=== PATIENT | male | born 1965 | race Caucasian/White ===

== ENCOUNTER 2017-10-19 11:47 | Inpatient (IN) | payer OTHER ==
[~2017-10-19] VITALS: Ht 167.6 cm; Wt 78.5 kg
[~2017-10-19 11:47] MED LIST: ASPIRIN325 MG PO; CRESTOR20 MG PO; EFFIENT10 MG PO; FISH OIL300 MG PO; GARLIC1 EACH PO; LOPRESSOR25 MG PO; OXYCODONE APAP; OXYCODONE-APAP1 EACH PO; PERCOCET 10/1 TABLET PO; RED YEAST RICE600 M1 PO; VITAMIN E100 UNIT PO
[2017-10-19 14:17] LABS: HEMATOCRIT 46.9 % (38.0-50.0); HEMOGLOBIN 15.9 G/DL (12.5-16.6); MCH 31.8 PG (29.0-34.0); MCHC 33.9 G/DL (30.0-36.0); MCV 93.8 FL (86-99); RBC DIS.WIDTH-CV 13.4 % (11.8-14.6); RBC DIS.WIDTH-SD 46.3 % (39-53); WHITE BLOOD COUNT 10.6 K/uL (4.1-10.2)
[2017-10-19 14:27] LABS: CHLORIDE 104 mEq/L (99-109); POTASSIUM 4.5 mEq/L (3.7-5.4); SODIUM 141 mEq/L (136-147)
[2017-10-19 14:28] LABS: GLUCOSE 92 mg/dL (70-99)
[2017-10-19 14:41] LABS: TROP-I INTERPRETATION NEGATIVE; TROPONIN-I < 0.01 ng/mL (0.0-0.30)
[2017-10-19 14:45] LABS: ALBUMIN 4.2 g/dL (3.2-4.8)
[2017-10-19 14:48] LABS: TOTAL PROTEIN 7.6 g/dL (6.4-8.3)
[2017-10-19 14:50] LABS: TOTAL BILIRUBIN 2.2 mg/dL (0.0-1.0)
[2017-10-19 14:51] LABS: ALKALINE PHOSPHATASE 67 IU/L (3-129)
[2017-10-19 14:52] LABS: CREATININE 0.9 mg/dL (0.6-1.3); GFR ESTIMATE (CALCULATED) > 59 mL/min/ (58.99-99999); UREA NITROGEN (BUN) 15 mg/dL (9-23)
[2017-10-19 14:53] LABS: AST (GOT) 14 IU/L (2-34); DIRECT BILIRUBIN 0.5 mg/dL (0.0-0.3)
[2017-10-19 14:54] LABS: ALT (GPT) 13 IU/L (3-49)
[2017-10-19 14:55] LABS: LIPASE 215 U/L (1.0-51.0)
[2017-10-19 15:17] LABS: PLAT.SUFFICIENCY ADEQUATE; PLATELET COUNT 250 K/uL (156-360)
[2017-10-19 18:04] VITALS: BP 143/81
[2017-10-19 19:40] VITALS: BP 139/97
[2017-10-19 20:26] LABS: TROP-I INTERPRETATION NEGATIVE; TROPONIN-I < 0.01 ng/mL (0.0-0.30)
[2017-10-19 23:31] VITALS: BP 106/56
[2017-10-20 02:58] LABS: TROP-I INTERPRETATION NEGATIVE; TROPONIN-I < 0.01 ng/mL (0.0-0.30)
[2017-10-20 04:01] VITALS: BP 108/60
[2017-10-20 07:08] LABS: CHLORIDE 108 MEQ/L (99-109); POTASSIUM 3.9 MEQ/L (3.7-5.4); SODIUM 141 MEQ/L (136-147)
[2017-10-20 07:14] LABS: CREATININE 0.8 MG/DL (0.6-1.3); GFR ESTIMATE (CALCULATED) > 59 mL/min/ (58.99-99999); GLUCOSE 105 mg/dL (70-99); UREA NITROGEN (BUN) 11 mg/dL (9-23)
[2017-10-20 07:37] VITALS: BP 124/66
[2017-10-20 11:24] VITALS: BP 122/80
[2017-10-20 15:01] LABS: HDL CHOLESTEROL 44 MG/DL (Desirable>=40); LDL CHOLESTEROL 200 mg/dL (Desirable<100); NON-HDL CHOLESTEROL 225 mg/dL (Desirable<160); TOTAL CHOLESTEROL 269 mg/dL (Desirable<200); TRIGLYCERIDES 123 MG/DL (Normal: <150)
[2017-10-20 16:13] VITALS: BP 126/76
[2017-10-20 19:49] VITALS: BP 139/87
[2017-10-20 23:35] VITALS: BP 136/78
[2017-10-21 03:35] VITALS: BP 134/76
[2017-10-21 06:43] LABS: HEMATOCRIT 44.1 % (38.0-50.0); HEMOGLOBIN 14.7 G/DL (12.5-16.6); MCH 31.3 PG (29.0-34.0); MCHC 33.3 G/DL (30.0-36.0); PLATELET COUNT 241 K/uL (156-360); RBC DIS.WIDTH-SD 44.7 % (39-53); RED BLOOD COUNT 4.69 M/uL (4.00-5.50); WHITE BLOOD COUNT 9.1 K/uL (4.1-10.2)
[2017-10-21 07:11] LABS: ALBUMIN 3.9 G/DL (3.2-4.8); ALKALINE PHOSPHATASE 54 IU/L (3-129); ALT (GPT) 8 IU/L (3-49); AST (GOT) 11 IU/L (2-34); CHLORIDE 107 MEQ/L (99-109); CREATININE 0.9 MG/DL (0.6-1.3); GFR ESTIMATE (CALCULATED) > 59 mL/min/ (58.99-99999); GLUCOSE 109 mg/dL (70-99); POTASSIUM 4.1 MEQ/L (3.7-5.4); SODIUM 141 MEQ/L (136-147); TOTAL BILIRUBIN 2.1 MG/DL (0.0-1.0); TOTAL PROTEIN 6.1 G/DL (6.4-8.3); UREA NITROGEN (BUN) 9 mg/dL (9-23)
[2017-10-21 07:53] VITALS: BP 126/86
== END 2017-10-21 11:38 | disposition home or self-care (01) | DRG 440 ==
LOC: EME 11:47 → 5SOUTH 16:27 → EDOF 16:27 → ENRESERV 16:29 → 5SOUTH 17:44 → ENPENDDIS 10-21 → 5SOUTH 10-21 11:38
PROVIDERS: Internal Medicine
DX: K85.90 Acute pancreatitis without necrosis or infection, unspecified (principal); K80.20 Calculus of gallbladder without cholecystitis without obstruction; I10 Essential (primary) hypertension; E78.00 Pure hypercholesterolemia, unspecified; I25.10 Atherosclerotic heart disease of native coronary artery without angina pectoris; M54.2 Cervicalgia; I25.2 Old myocardial infarction; Z95.5 Presence of coronary angioplasty implant and graft; Z79.82 Long term (current) use of aspirin; Z87.891 Personal history of nicotine dependence; Z90.81 Acquired absence of spleen
CPT/HCPCS: 71020; 71275; 76705; 80048; 80053; 80061; 80076; 83690; 84484; 85027; 93005; 94760; 99202; 99281; 99283; J1170; J1650; J7030; S0028

== ENCOUNTER → 2018-02-14 | Outpatient (CLI) | payer OTHER ==
[~2018-02-14] MED LIST changes: +OMEPRAZOLE40 M1 PO
== END | disposition home or self-care (01) ==
LOC: CDC 10:01
DX: Z01.810 Encounter for preprocedural cardiovascular examination (principal); K80.20 Calculus of gallbladder without cholecystitis without obstruction; R00.1 Bradycardia, unspecified
CPT/HCPCS: 93000

== ENCOUNTER 2018-04-01 05:25 | Day surgery (SDC) | payer OTHER ==
[~2018-04-01] VITALS: Ht 162.6 cm; Wt 77.1 kg
[~2018-04-01 05:25] MED LIST changes: +METAMUCIL0.52 GM PO
[2018-04-01 05:55] VITALS: BP 131/77
[2018-04-01] MEDS ORDERED: PERCOCET 5/31 TABLET PO (09:13)
[2018-04-01 10:30] VITALS: BP 148/87
[2018-04-01 11:14] VITALS: BP 116/75
== END 2018-04-01 11:25 | disposition home or self-care (01) ==
LOC: SDC
DX: K80.10 Calculus of gallbladder with chronic cholecystitis without obstruction (principal); K85.90 Acute pancreatitis without necrosis or infection, unspecified; Z90.81 Acquired absence of spleen; K66.0 Peritoneal adhesions (postprocedural) (postinfection); K21.9 Gastro-esophageal reflux disease without esophagitis; I25.10 Atherosclerotic heart disease of native coronary artery without angina pectoris; Z95.5 Presence of coronary angioplasty implant and graft; I25.2 Old myocardial infarction; Z86.14 Personal history of Methicillin resistant Staphylococcus aureus infection; J45.909 Unspecified asthma, uncomplicated; Z79.82 Long term (current) use of aspirin; F12.90 Cannabis use, unspecified, uncomplicated; Z82.49 Family history of ischemic heart disease and other diseases of the circulatory system; Z83.49 Family history of other endocrine, nutritional and metabolic diseases; Z83.3 Family history of diabetes mellitus
CPT/HCPCS: 74300; 88304; J0131; J0330; J1100; J1170; J1885; J2250; J2405; J3010; S0020; S0074